=== PATIENT | female | born 1950 | race Caucasian/White ===

== ENCOUNTER → 2021-06-22 06:45 | Outpatient (CLI) | payer MEDICARE, SELFPAY ==
[2021-06-22 17:52] LABS: SARS-CoV-2 RNA PCR Negative
== END ==
PROVIDERS: PCP Family Medicine; Visit Provider Family Medicine
DX: R50.9 Fever, unspecified (principal); M79.10 Myalgia, unspecified site; Z20.822 Contact with and (suspected) exposure to COVID-19
CPT/HCPCS: C9803; U0003; U0005

== ENCOUNTER 2021-08-20 02:12 | Day surgery (SDC) | payer MEDICARE, SELFPAY ==
[2021-08-08 08:57] VITALS: BMI 28.7
[2021-08-20 08:22] VITALS: BP 138/66; PULSE 62; RESP 16; TEMP 36.3; O2SAT 100; BMI 27.8
[2021-08-20] MEDS: LACTATED RINGERS 1,000 ML 150 ML IV CONT (08:35)
--- NOTE | 2021-08-20 08:49 | WPDGICN ---
Assessment and Plan Assessment and plan (1) Encounter for screening colonoscopy: Code(s): Z12.11 - Encounter for screening for malignant neoplasm of colon Status: Acute Assessment and Plan: Patient presents for screening colonoscopy. She appears to be at average risk for colon polyps. GI Consult Note Consult date/time: 08/20/21 08:49 HPI: Graciela Cabrales is a 70 year old female Presents for screening colonoscopy. Patient reports that her current weight appetite bowel movements are normal. She denies an abdominal pain. She has had no bleeding. Family history is noncontributory. Review of Systems Review of Systems: All systems reviewed & are unremarkable except as noted in HPI and below PMFSH Past Medical History Medical History (Updated 08/20/21 @ 08:51 by Ted Ríos MD) Anemia Cataracts, bilateral Cystocele Osteopenia Thyroid disease Tubal ligation evaluation Family History Family History (Reviewed 12/13/20 @ 08:04 by Naomy Long [facility]) Other Cerebrovascular accident Family history of anemia Family history of cardiovascular disease Family history of elevated blood lipids Family history of hearing loss Family history of osteoporosis Family history of seizure disorder Hypertension Malignant neoplasm of prostate Social History Social History (Reviewed 12/13/20 @ 08:04 by Naomy Long [facility]) Smoking status: Never smoker Alcohol intake: current Living arrangements: with family Spiritual care concerns: No Meds Home Medications and Allergies Home Medications Medication Instructions Recorded Confirmed Type sodium chloride 5 % eye ointment 1 applic OPHTHALMIC (EYE) DAILY 12/13/20 08/08/21 History vitamin B complex 1 tablet PO BID 12/13/20 08/08/21 History ascorbic acid (vitamin C) 500 mg 50 mg PO DAILY tablet 04/11/21 08/08/21 History tablet evening primrose oil 500 mg capsule 500 mg PO TID 04/11/21 08/08/21 History sertraline 25 mg tablet 25 mg PO DAILY 04/11/21 08/08/21 History cholecalciferol (vitamin D3) 25 mcg PO DAILY 08/08/21 08/08/21 History bwsupajmcsw-czbitirxk-fou C-Mn 3 cap PO DAILY 08/08/21 08/08/21 History [Glucosamine Chondroitin MaxStr] magnesium 250 mg PO DAILY 08/08/21 08/08/21 History lmbntidli-jwdfwau-nhkwfwqxr 2 cap PO DAILY 08/08/21 08/08/21 History vitamin E acetate 134 mg PO BID 08/08/21 08/08/21 History Allergies Allergy/AdvReac Type Severity Reaction Status Date / Time No Known Allergies Allergy Unknown Verified 08/20/21 08:21 Vital Signs Vital Signs - 24 hr 08/20/21 08:22 Temperature 97.3 F L Pulse Rate 62 Respiratory Rate 16 Blood Pressure 138/66 Pulse Oximetry 100 Exam Narrative: physical exam reveals patient to be alert. Vital signs stable. HEENT exam is unremarkable. Patient is anicteric. Lungs are clear to auscultation and percussion. Heart is without murmur or extra sounds. Abdominal exam bowel sounds are present soft nontender with no hepatosplenomegaly. Digital external rectal exam is normal.
--- NOTE | 2021-08-20 08:51 | WPDANESEPPF ---
Anes - Initial Pre Proc Eval Procedure: Operation Date: 08/20/21 09:30 Proposed Procedures p Screening Colonoscopy - Ted Ríos MD Date/Time: 08/20/21 08:51 Surgeon: Ted Ríos MD Pre Op Diagnosis: neoplasm screening Patient Data Age: 70 Gender: F Height: 1.57 m Weight: 69 kg Last Vital Signs Temp 97.3 F L 08/20/21 08:22 Pulse 62 08/20/21 08:22 Resp 16 08/20/21 08:22 BP 138/66 08/20/21 08:22 Pulse Ox 100 08/20/21 08:22 Allergies Allergy/AdvReac Type Severity Reaction Status Date / Time No Known Allergies Allergy Unknown Verified 08/20/21 08:21 Home Medications Medication Instructions Recorded Confirmed Type sodium chloride 5 % eye ointment 1 applic OPHTHALMIC (EYE) DAILY 12/13/20 08/08/21 History vitamin B complex 1 tablet PO BID 12/13/20 08/08/21 History ascorbic acid (vitamin C) 500 mg 50 mg PO DAILY tablet 04/11/21 08/08/21 History tablet evening primrose oil 500 mg capsule 500 mg PO TID 04/11/21 08/08/21 History sertraline 25 mg tablet 25 mg PO DAILY 04/11/21 08/08/21 History cholecalciferol (vitamin D3) 25 mcg PO DAILY 08/08/21 08/08/21 History smptrbhrlbg-wgmqczlsr-ied C-Mn 3 cap PO DAILY 08/08/21 08/08/21 History [Glucosamine Chondroitin MaxStr] magnesium 250 mg PO DAILY 08/08/21 08/08/21 History jeswxcezl-uwuhagz-gmxpbefgz 2 cap PO DAILY 08/08/21 08/08/21 History vitamin E acetate 134 mg PO BID 08/08/21 08/08/21 History Patient hx anesthesia problems: none Family hx anesthesia problems: none PMFSH Past Medical History Medical History (Updated 08/20/21 @ 08:51 by Ted Ríos MD) Anemia Cataracts, bilateral Cystocele Osteopenia Thyroid disease Tubal ligation evaluation Family History Family History Other Cerebrovascular accident Family history of anemia Family history of cardiovascular disease Family history of elevated blood lipids Family history of hearing loss Family history of osteoporosis Family history of seizure disorder Hypertension Malignant neoplasm of prostate Social History Social History Smoking status: Never smoker Alcohol intake: current Living arrangements: with family Spiritual care concerns: No Anes - Eval Final PreProcedure Day of Procedure 08/20/21 08:51 Patient weight: overweight Heart: regular rate and rhythm Lungs: clear to auscultation Airway: Mallampati scale class II Neurological: alert and oriented Last oral intake: >/= 8 hours ASA classification: II Emergent: no Anesthetic plan: proceed Anesthesia type and monitoring: general GIVS and standard monitoring Informed Consent: The patient's anesthetic plan and its attendant risks and benefits were discussed with the patient/family/POA. Questions were solicited and answers provided to the satisfaction of the patient/family/POA.
[2021-08-20 09:16] VITALS: BP 112/48; PULSE 57; RESP 19; O2SAT 100
[2021-08-20 09:26] VITALS: BP 120/53; PULSE 52; RESP 15; O2SAT 100
[2021-08-20 09:36] VITALS: BP 128/58; PULSE 51; RESP 17; O2SAT 100
== END 2021-08-20 09:44 | disposition home or self-care (01) ==
PROVIDERS: PCP Physician Assistant; Visit Provider Internal Medicine Gastroenterology
PROC: 0DJD8ZZ Inspection of Lower Intestinal Tract, Via Natural or Artificial Opening Endoscopic (ICD-10-PCS; CPT 45378; principal; 2021-08-20 09:30)
DX: Z12.11 Encounter for screening for malignant neoplasm of colon (principal); K64.8 Other hemorrhoids; K57.30 Diverticulosis of large intestine without perforation or abscess without bleeding; M85.80 Other specified disorders of bone density and structure, unspecified site
CPT/HCPCS: G0121; J2704; J7120

== ENCOUNTER 2022-05-24 01:36 | Day surgery (SDC) | payer MEDICARE, SELFPAY ==
[2022-05-23 15:29] VITALS: BMI 28.8
[2022-05-24 08:40] VITALS: BP 137/73; PULSE 60; RESP 13; TEMP 36.6; O2SAT 98
--- NOTE | 2022-05-24 09:45 | SUR.PREOP ---
0900 Artem the rep with [facility] in [facility] talking with the patient.
--- NOTE | 2022-05-24 09:59 | WPDHPUPDATE1 ---
History and Physical Update Update Date/Time: 05/24/22 09:59 History and Physical has been reviewed, including an updated exam of the patient. There are NO changes in the patient's condition. Risks, benefits, and alternatives have been discussed and questions answered. Patient agrees to proceed with procedure.
--- NOTE | 2022-05-24 10:00 | WPDMODSED ---
Moderate Sedation Note-Pt Data Patient Data Diagnosis: Intermittent syncope of unknown known etiology Present Complaint: No complaints today Procedure to be performed/Plan: Implant loop recorder Allergies Allergy/AdvReac Type Severity Reaction Status Date / Time No Known Allergies Allergy Unknown Verified 05/24/22 08:36 Home Medications Medication Instructions Recorded Confirmed Type sodium chloride 5 % eye ointment 1 applic ophthalmic (eye) DAILY 12/13/20 05/24/22 History vitamin B complex 1 tablet PO BID 12/13/20 05/24/22 History ascorbic acid (vitamin C) 500 mg 500 mg PO DAILY 04/11/21 05/24/22 History tablet (Vitamin C) evening primrose oil 500 mg capsule 500 mg PO TID 04/11/21 05/24/22 History cholecalciferol (vitamin D3) 25 25 mcg PO DAILY 08/08/21 05/24/22 History mcg (1,000 unit) capsule fpegvytqytf-iqenblgjx-tbc C-Mn 500 1 cap PO TID 08/08/21 05/24/22 History mg-400 mg capsule (Glucosamine Chondroitin Maximum Strength) magnesium 250 mg tablet 250 mg PO DAILY 08/08/21 05/24/22 History vblgoivug-ihslerd-ahjyvxukr capsule 1 cap PO DAILY 08/08/21 05/24/22 History Synthroid 25 mcg tablet 25 mcg PO QAM 90 days #90 tabs 04/10/22 05/24/22 Rx (levothyroxine) vitamin E acetate 100 unit capsule 100 unit PO BID 05/23/22 05/24/22 History Sedation/Anesthesia: No previous sedation/anesthesia problems (including family history). [facility] Past Medical History Medical History (Updated 04/10/22 @ 09:01 by Jose Enrique Kaur CMA) Anemia Basal cell carcinoma of axilla Cataracts, bilateral Cystocele Osteopenia Thyroid disease Tubal ligation evaluation Family History Family History Other Cerebrovascular accident Family history of anemia Family history of cardiovascular disease Family history of elevated blood lipids Family history of hearing loss Family history of osteoporosis Family history of seizure disorder Hypertension Malignant neoplasm of prostate Social History Social History Smoking packs per day: 0 Smoking cigarettes per day: 0.0 Years smoked: 0 Smoking pack-years: 0.00 Smoking status: Never smoker Second hand tobacco smoke exposure: No Alcohol intake: current Alcohol use details: GLASS OF WINE FEW TIMES A YEAR. Substance use: never Substance use type: does not use Living arrangements: with family Additional living arrangements comments: LIVES W/ , INES [place]ST[place] Spiritual care concerns: No Mod Sed Physical Exam Physical Exam Pre Procedural Exam: Normal: Appearance, Neck, Throat, Airway, Lungs, Heart Size, Heart Rate, Heart Rhythm, Neuro Exam and Extremities Hours since solid foods: 12 Hours since liquid intake: 12 Mallampati Classification: class II Internal Medicine - PN: Obj Da Vital Signs Vital Signs: Vital Signs - 24 hr // 08:40 Temperature 36.6 C Pulse Rate 60 Respiratory Rate 13 Blood Pressure 137/73 Pulse Oximetry 98 Oxygen Delivery Room Air ASA Classification/Sedation ASA Classification/Sedation ASA Class: II Emergent: No Risks: Risks, benefits and alternatives explained and patient/family accepted plan for sedation. Patient re-evaluated immediately prior to sedation.
--- NOTE | 2022-05-24 10:00 | SUR.OPER ---
pt resting comfortably in bed, Dr. Ruiz spoke with pt for exam and to answer any additional questions. Pt skin prepped, pt draped. Prepare for procedure.
--- NOTE | 2022-05-24 10:20 | P.PCNCC_ITS ---
Cardiac Cath Procedure Note Date of procedure:: 05/24/22 Performing physician:: Moiz Ruiz MD Indication:: Intermittent syncope Brief clinical history:: This is a 71-year-old woman with a history of intermittent syncope for many years. The Ti episodes are occurring very infrequently. For evaluation of this an implantable loop recorder has been recommended. Procedure Procedure performed:: Implantation of Biotronik Biomonitor loop recorder Sedation/Medication given:: No sedation Access site:: Left anterior chest wall Estimated blood loss:: Minimal Procedure note:: Patient was brought to the cardiac catheterization lab holding area in the postabsorptive state. She was in the supine position and maame was made in the left anterior chest wall in the midclavicular line at the 4th intercostal space. This area was then prepped and draped in the sterile fashion. Anesthesia was given with 20 cc of lidocaine infiltrated in the area. Using the insertion kit supplied with the bio monitor the the puncture was made at the marked spot and then the device was deployed inferior to the maame easily and without difficulty. The telemetry demonstrated excellent sensing of the patient's electrocardiogram. The wound is going dressed with a bio glue and a Band-Aid. Findings:: As above the patient bio monitor device model number [id number], serial number [id number] Conclusion:: Successful uncomplicated implantation of Biotronik bio monitor loop recorder for ongoing evaluation of intermittent episodes of syncope in this 71-year-old lady. Moiz Ruiz MD [facility]
[2022-05-24 10:40] VITALS: BP 153/62; PULSE 58; RESP 12; O2SAT 100
== END 2022-05-24 10:45 | disposition home or self-care (01) ==
LOC: ANHCATHLAB 01:37 → ANHCARD 10:43 → ANHCATHLAB 06-11 14:21
PROVIDERS: PCP Physician Assistant; Visit Provider Specialist
PROC: (CPT 33285; principal; 2022-05-24 09:00)
DX: R55 Syncope and collapse (principal)
CPT/HCPCS: 33285; C1764

== ENCOUNTER 2023-06-13 13:05 | Observation (INO) | payer MEDICARE, SELFPAY ==
[2023-06-13] VITALS (14 sets, daily range): BP systolic 126–160; BP diastolic 50–77; PULSE 57–81; RESP 12–20; TEMP 36.2–37.1; O2SAT 96–100; BMI 31.4
--- NOTE | ~2023-06-13 | XR_ITS ---
XR chest 2V DATE: 06/14/2023 13:23 INDICATION: 24 hours post pacemaker insertion TECHNIQUE: PA and lateral views COMPARISON: 06/13/2023 portable upright AP chest FINDINGS: Left dual-lead pacemaker device with leads overlying right atrium and right ventricle. Overlies left chest. Normal heart size. Aortic arch calcification. No hilar or mediastinal enlargement. No pulmonary infiltrate or consolidation, pleural effusion or pulmonary vascular congestion or pneumo thorax. Mild thoracic dextroscoliosis. Osteopenia. IMPRESSION: Left dual-lead pacemaker device No active cardiopulmonary disease Aortic atherosclerosis Reviewed, dictated and finalized at location A.
--- NOTE | ~2023-06-13 | XR_ITS ---
EXAMINATION: XR chest 1V portable INDICATION: Pacemaker insertion TECHNIQUE: Portable AP chest at 1328 hours COMPARISON: 12/15/2007 FINDINGS: The lungs are free of acute opacities. No pleural effusion or pneumothorax. The cardiomedia stinal silhouette is normal. A dual-lead cardiac pacemaker of the left chest wall ends with leads in expected locations. An implanted quality assurance monitor projects over the left chest. IMPRESSION: 1. Dual-lead left chest wall pacemaker insertion. No acute cardiopulmonary abnormality. Reviewed, dictated and finalized at location B. IMPRESSION: 1. Dual-lead left chest wall pacemaker insertion. No acute cardiopulmonary abno rmality.
--- NOTE | 2023-06-13 09:19 | ECG_ITS ---
Measurements Intervals [place] Rate: 58 P: 32 [place]: 166 QRS: 46 QRSD: 98 T: 29 QT: 425 QTc: 417 Interpretive Statements SINUS BRADYCARDIA INCOMPLETE RIGHT BUNDLE BRANCH BLOCK BORDERLINE ECG NO PREVIOUS ECG AVAILABLE FOR COMPARISON Electronically Signed On 06-13-2023 11:10:58 CDT by Edwin Elizabeth D.O.
[2023-06-13 09:50] LABS: Basophils Absolute Auto 0.1 K/mm3 (0.0-0.1); Eosinophils Absolute Auto 0.1 K/mm3 (0-0.3); Eosinophils Percent Auto 2.2 % (0-4.4); Hematocrit 40.5 % (37.0-47.0); Hemoglobin 13.5 g/dL (12.0-15.0); Immature Granulocyte Absolute 0.02 K/mm3 (0.00-0.031); Immature Granulocyte Percent A 0.4 % (0-0.5); Lymphocytes Absolute Auto 1.34 K/mm3 (0.9-3.2); Lymphocytes Percent Auto 26.4 % (18.3-44.2); Mean Corpuscular HGB Conc 33.3 g/dl (32-36); Mean Corpuscular Hemoglobin 31.3 pg (26-34); Mean Platelet Volume 10.3 fl (7.4-10.4); Monocytes Absolute Auto 0.4 K/mm3 (0.1-0.6); Monocytes Percent Auto 8.7 % (2.6-8.5); Neutrophils Absolute Auto 3.1 K/mm3 (1.3-6.7); Neutrophils Percent Auto 61.3 % (45.5-73.1); Platelet Count Result 232 k/mm3 (150-375); Red Blood Count 4.31 M/mm3 (4.2-5.4); Red Cell Distribution Width 13.2 % (11.5-14.5); White Blood Count 5.1 K/mm3 (4.5-10.0)
[2023-06-13 10:03] LABS: INR 0.9; Prothrombin Time 12.7 Seconds (11.1-14.7)
[2023-06-13 10:40] LABS: Anion Gap 5 mmol/L (8-16); Blood Urea Nitrogen 21 mg/dL (7-17); Calcium 8.8 mg/dL (8.4-10.2); Carbon Dioxide 30 mmol/L (22-30); Chloride 105 mmol/L (98-107); Estimated CRCL calculation 67 ml/min; Estimated Glomerular Filt Rate > 60; Glucose 96 mg/dL (65-110); Potassium 3.7 mmol/L (3.4-5.0); Sodium 140 mmol/L (137-145)
--- NOTE | 2023-06-13 11:49 | WPDMODSED ---
Moderate Sedation Note-Pt Data Patient Data Diagnosis: sick sinus syndrome with syncope Present Complaint: infrequent syncopal episodes Procedure to be performed/Plan: implantation of dual-chamber pacemaker Allergies Allergy/AdvReac Type Severity Reaction Status Date / Time No Known Allergies Allergy Unknown Verified 06/13/23 09:21 Home Medications Medication Instructions Recorded Confirmed Type sodium chloride 5 % eye ointment 1 applic ophthalmic (eye) DAILY 12/13/20 06/12/23 History vitamin B complex 1 tablet PO DAILY 12/13/20 06/12/23 History ascorbic acid (vitamin C) 500 mg 500 mg PO DAILY 04/11/21 06/12/23 History tablet (Vitamin C) evening primrose oil 500 mg capsule 500 mg PO TID 04/11/21 06/12/23 History cholecalciferol (vitamin D3) 25 25 mcg PO DAILY 08/08/21 06/12/23 History mcg (1,000 unit) capsule wattiqawjxe-jxdqtatae-oue C-Mn 500 1 cap PO TID 08/08/21 06/12/23 History mg-400 mg capsule (Glucosamine Chondroitin Maximum Strength) magnesium 250 mg tablet 250 mg PO DAILY 08/08/21 06/12/23 History lgybaboan-ydexytc-ncswkjkkc capsule 1 cap PO DAILY 08/08/21 06/12/23 History vitamin E acetate 100 unit capsule 100 unit PO BID 05/23/22 06/12/23 History Synthroid 25 mcg tablet 25 mcg PO QAM 90 days #90 tabs 10/16/22 06/13/23 Rx (levothyroxine) Sedation/Anesthesia: No previous sedation/anesthesia problems (including family history). [facility] Past Medical History Medical History (Updated 06/01/23 @ 10:34 by TAJ Nguyễn) Anemia Depression History of Mohs micrographic surgery for skin cancer History of syncope Hypertension Hypothyroidism, acquired Obstructive sleep apnea Osteopenia Surgical History Surgical History (Updated 06/01/23 @ 11:26 by TAJ Nguyễn) History of bladder suspension procedure cystocele and rectocele repair 2004 History of cataract surgery 08/2022 History of colonoscopy 2020 History of D&C 1979 History of loop recorder 05/24/2022 History of tubal ligation 1979 Family History Family History Grandparent Heart disease Pancreatic cancer Primary cancer of kidney Malignant neoplasm of prostate Father Hypertension Parkinson disease Mother Diabetes mellitus Heart disease Social History Social History (Updated 05/28/23 @ 10:00 by Eliz Simental MA) Smoking status: Never smoker Second hand tobacco smoke exposure: No Alcohol intake: current Alcohol use details: 2 glasses wine per year Substance use: never Substance use type: does not use Lack of Transportation: No Lack of Food: Never True Current Housing: I Have Housing Concerned About Future Housing: No Difficulty Paying Gas/Electric Bills: No Difficulty Paying for Meds: No Currently Unemployed: No Education: Trade/Vocational Certificate Difficulty w/ Childcare or Family Care: No Living arrangements: with family Additional living arrangements comments: LIVES W/ , [place] Occupation/Education: occupation Gender identity (if verbalized by the patient): Female Sexual Orientation (if Verbalized by the Patient): Straight or Heterosexual Spiritual care concerns: No Mod Sed Physical Exam Physical Exam Pre Procedural Exam: Normal: Appearance, Nose, Neck, Throat, Airway, Lungs, Heart Size, Heart Rate, Heart Rhythm, Neuro Exam and Extremities Hours since solid foods: 12 Hours since liquid intake: 12 Mallampati Classification: class II Internal Medicine - PN: Obj Da Vital Signs Vital Signs: Vital Signs - 24 hr 06/13/23 09:45 Temperature 36.6 C Pulse Rate 57 L Respiratory Rate 12 Blood Pressure 152/63 H Pulse Oximetry 99 Oxygen Delivery Room Air Labs 06/13/23 09:27 06/13/23 10:08 Labs: Laboratory Results - last 24 hr 06/13/23 06/13/23 09:27 10:08 WBC 5.1 RBC 4.31 Hgb 13.5 H
--- NOTE | 2023-06-13 13:05 | ECG_ITS ---
Measurements Intervals [place] Rate: 56 P: 54 [place]: 176 QRS: 72 QRSD: 104 T: 45 QT: 424 QTc: 412 Interpretive Statements SINUS BRADYCARDIA INCOMPLETE RIGHT BUNDLE BRANCH BLOCK BORDERLINE ECG COMPARED TO ECG 06/13/2023 09:54:07 NO SIGNIFICANT CHANGES Electronically Signed On 06-13-2023 13:44:09 CDT by Edwin Elizabeth D.O.
--- NOTE | 2023-06-13 13:07 | WPDCARDPROC ---
Cardiac Cath Procedure Note Date of procedure:: 06/13/23 Performing physician:: Moiz Ruiz MD Indication:: sick sinus syndrome with syncope Brief clinical history:: this is a 72-year-old woman who has a history of a infrequent syncopal episodes. For evaluation of this approximately 1 year ago a loop recorder was implanted. Earlier this week the device demonstrated a long asystolic pause of 12 seconds Which of course was symptomatic prompting the recommendation for pacemaker implantation. Procedure Procedure performed:: Implantation of permanent dual-chamber pacemaker Sedation/Medication given:: fentanyl 50 mg Versed 2 mg Access site:: left anterior chest wall /subclavian vein Estimated blood loss:: 25 cc Procedure note:: patient was brought to the cardiac catheterization lab in the postabsorptive state where the left anterior chest wall was prepped and draped in the usual fashion. Anesthesia was provided a below the clavicle with 1% lidocaine infiltrated locally. an incision was then made about 1 in below the clavicle from the midclavicular line to the deltopectoral groove. Sharp and blunt dissection was then used to separate the subcutaneous tissue electrocautery was used to provide cutaneous hemostasis. Using blunt dissection a pacemaker pocket was created inferior to the incision along the prepectoral fascial plane. Following this the pocket was packed with an antibiotic-soaked 4 x 4. Attention was then turned venous access. Using the 2 6 [place] pacemaker safe sheath devices and the supplied insertion needles the subclavian vein was punctured twice and the J wires were placed under fluoroscopic visualization into the level of the right atrium. Using the safe sheaths the pacemaker leads detailed below were placed into the venous circulation and advanced to the right atrial position the piece sheaths were then peeled away. Following this attention was turned to placing the ventricular lead. The straight stylet was withdrawn and a 3 cc syringe was used to formulate a J-shaped stylet. This was used to steer the lead through the right ventricle out to the pulmonary artery position. Several attempts had to be made to withdraw the lead carefully and find a right ventricular apical position. A ultimately this was done nicely the fixation screw was deployed and appropriate pacing and sensing performance was demonstrated using a 10 pole stimulus there was no sign of intracardiac stimulation. Attention was then turned to positioning the atrial lead. The stylet was withdrawn and a preformed atrial J stylet was placed into the lead and the lead was then maneuvered into the right atrial appendage position. The fixation screw was deployed upon withdrawal of the stylet the lead tip was fixed into position once again appropriate pacing and sensing was demonstrated using the analyzer and a 10 volts stimulation showed no evidence of extracardiac stimulation. The leads were then secured to the base of the pocket using the suture sleeves and 2-0 silk ties. The retained sponge was then removed from the pocket. The pacemaker device detailed below was connected to the leads using the torque wrench and the entire assembly was placed into the newly created pocket. This was then closed in layers using 3-0 Vicryl in interrupted fashion for the subcutaneous tissue and 4-0 Vicryl in a running subcuticular fashion for the skin. The wound was dressed with an Aquacel dressing patient's left arm was placed in an immobilizer she has taken back to the holding area for post implant recovery. The procedure was well tolerated and uncomplicated. Findings:: The patient received a Biotronik permanent dual-chamber pacemaker model Edora 8 DR=T [id number]. Serial number [id number]. Device is programmed in the DDD/CLS mode lower rate limit 50 upper rate limit 130. The atrial lead is a Biotronik bipolar screw-in lead model Solia S [id number]. serial number [id number]
--- NOTE | 2023-06-13 14:15 | SUR.PHASEII ---
END PHASE II RECOVERY AT THIS TIME. NOW, OUTPATIENT PPM INSERTION VISIT CHANGED TO OBSERVATIONAL STAY AFTER OUTPATIENT PPM INSERTION, IMU STATUS ORDERED BY DR. AVERY. REMAINS IN [facility] AT THIS TIME. WILL MOVE TO IMU BED FOR DURATION OF STAY WHEN BED AVAILABLE. SEE PCS FOR FURTHER DOCUMENTATION.
--- NOTE | 2023-06-13 14:16 | PC.NURSE ---
PT. STATUS NOW OBS, IMU OVERFLOW IN ALTERATION WORKER 3. S/P NEW BIOTRONIK DCPPM INSERTION L. UPPER CHEST TODAY. SEE PHASE II RECOVERY FOR PREVIOUS DOCUMENTATION. RESTING IN BED, IMMOBILIZER ON L. ARM. DRESSING OVER PPM SITE C/D/I. NO SWELLING, REDNESS, BLEEDING, HEMATOMA NOTED TO SITE. REPORTS SORE TO TOUCH, BUT NOT IN PAIN. ATE 100% OF LUNCH. VOIDS WELL PER BEDPAN. IVF'S RUNNING ORDERED. AT BEDSIDE. REVIEWED BEDREST ORDERS AND MOVEMENT RESTRICTIONS FOR L. ARM POST OP. V/U OF ALL. LAST IV ABX WAS GIVEN AT 1200 IN CCL. WILL CONTINUE TO MONITOR.
[2023-06-13] MEDS: ACETAMINOPHEN 325 MG TABLET 650 MG PO ×2 (16:42→21:00)
--- NOTE | 2023-06-13 17:10 | PC.NURSE ---
PT TO MOVE TO IMU 202 FOR DURATION OF OBSERVATION STAY S/P NEW DC PPM IMPLANT. PT. AND AWARE. REPORT GIVEN TO PETRA Serna RN IN IMU.
--- NOTE | 2023-06-13 17:30 | PC.NURSE ---
TRANSFERRED VIA BED FROM [facility] TO IMU 202 IMU OBS STATUS PT ON TRANSPORT MONITOR. ALL BELONGINGS SENT W/ PT. BIOTRONIK BEDSIDE MONITOR PLACED BEDSIDE IN AND PLUGGED IN. PT. HAS OWN CPAP DEVICE IN POSSESSION. ICE PACK TO L. UPPER CHEST. VOICES NO C/O. UPDATES TO PETRA Serna RN.
[2023-06-13] MEDS: SODIUM CHLORIDE 0.9% IV 1,000 ML 50 ML IV CONT (17:40)
--- NOTE | 2023-06-13 17:40 | ADMGEN ---
This patient, Graciela Cabrales, was admitted to IMU Room 202-. Patient/family oriented to hospital policies and general routines including ID bracelet, bed and alarms, visiting hours, pain management, procedures, bathroom and other care routines, personal items, smoking policy, room service/diet, and visiting hours. Information on how to activate the Rapid Response Team has been discussed. Patient/Family are encouraged to report perceived risks to care and to ask questions if they do not understand what they are told or what they should do.
[2023-06-13] MEDS: VITAMIN E 100 UNIT CAPSULE PO (18:29)
[2023-06-13] MEDS: ceFAZolin 1 GM/NS 50 ML 1 GM/50 ML BAG IVPB (20:12)
[2023-06-13] MEDS: WATER FOR IRRIGATION, STERILE 1,000 ML BOTTLE 1000 ML (20:59)
[2023-06-14] VITALS (8 sets, daily range): BP systolic 128–136; BP diastolic 56–61; PULSE 58–84; RESP 12–20; TEMP 36.4–36.8; O2SAT 98–99
[2023-06-14] MEDS: ceFAZolin 1 GM/NS 50 ML 1 GM/50 ML BAG IVPB (04:02)
[2023-06-14] MEDS: ACETAMINOPHEN 325 MG TABLET 650 MG PO (04:08)
[2023-06-14] MEDS: LEVOTHYROXINE SODIUM 25 MCG TABLET PO (06:11)
--- NOTE | 2023-06-14 08:04 | PM.DS ---
DS: Admitting Diagnosis Discharge Date 06/14/2023 Admitting Diagnosis Sick sinus syndrome with syncope DS: Discharge Diagnosis Discharge Diagnosis (1) Pacemaker: Code(s): Z95.0 - Presence of cardiac pacemaker Status: Acute DS: Summary Hospital Course Reason for hospitalization: Implantation of pacemaker device Hospital Course: This is a 72-year-old woman with a history of infrequent episodes of syncope. For evaluation of this a loop recorder was placed about 1 year ago. The device demonstrated a long asystolic pause earlier this week. The patient was seen in the office and recommendation was for implantation of pacemaker device. She was admitted on the morning of this hospitalization for this procedure as an outpatient. She underwent implantation of a permanent Biotronik dual-chamber pacing system uneventfully. The details of the procedure and device are in the separately dictated note from the cardiac bottle label inspector procedure note. Following the procedure she had no postop complications she is feeling well this morning and completing her bed rest. Following completion of bed rest she will have chest x-ray done and be discharged to home this afternoon. She will be seen in the office next week for dressing removal and wound check. Status at Discharge Functional status at discharge: independent ambulation Overall status at discharge: patient is back to baseline Time Spent with Patient Time attestation: Total time spent providing and/or coordinating discharge services: Time spent: Less than 30 minutes Exam Const: General: comfortable and no acute distress HENMT: Mouth: Yes moist mucous membranes Eyes: Sclera: sclerae normal Neck: Neck: supple and no JVD Resp: Effort & Inspection: normal respiratory effort Auscultation: clear to auscultation bilaterally Cardio: Rate: regular rate Rhythm: regular rhythm GI: GI Palp: Yes Soft to palpation Auscultation: normal bowel sounds Skin: General skin exam: normal color Neuro: Other: Alert and oriented x3 Extrem: General: normal to inspection DS: Data Data Completed and Pending Labs on day of discharge: Labs from last 24 hours 06/13/23 06/13/23 10:08 09:27 WBC 5.1 RBC 4.31 Hgb 13.5 Hct 40.5 MCV 94.0 MCH 31.3 MCHC 33.3 RDW 13.2 Plt Count 232 MPV 10.3 Immature Gran % (Auto) 0.4 Neut % (Auto) 61.3 Lymph % (Auto) 26.4 [place] % (Auto) 8.7 H Eos % (Auto) 2.2 Baso % (Auto) 1.0 Lymph # (Auto) 1.34 [place] # (Auto) 0.4 Eos # (Auto) 0.1 Baso # (Auto) 0.1 Abs Immat Gran (auto) 0.02 Absolute Neuts (auto) 3.1 Absolute Nucleated RBC 0.0 Nucleated RBC % 0.0 PT 12.7 INR 0.9 Sodium 140 Potassium 3.7 Chloride 105 Carbon Dioxide 30 Anion Gap 5 L BUN 21 H Creatinine 0.60 L Estim Creat Clear Calc 67 Estimated GFR > 60 Glucose 96 Calcium 8.8 Discharge Plan Discharge Attending physician on discharge: Moiz Ruiz Discharging Clinician: Moiz Ruiz Patient Disposition: Home, Self-Care Activity: other - see discharge instructions Diet: regular Discharge Instructions: [facility] [address] [place] [address] DISCHARGE INSTRUCTIONS - POST PACEMAKER Activity 1. No driving until you are seen in the office for your incision check. 2. No lifting, pushing or pulling more than 5 pounds with affected arm for 1 MONTH 3. No lifting affected arm
[2023-06-14] MEDS: CHOLECALCIFEROL 1,000 UNITS TABLET 1000 UNITS PO (08:45)
[2023-06-14] MEDS: ASCORBIC ACID 500 MG TABLET PO (08:45)
[2023-06-14] MEDS: VITAMIN E 100 UNIT CAPSULE PO (08:45)
[2023-06-14] MEDS: VITAMIN B COMPLEX CAPSULE 1 CAP PO (08:45)
[2023-06-14] MEDS: SODIUM CHLORIDE 5% OPHTH OINT 3.5 GM TUBE 1 APPLIC EACH EYE (08:45)
--- NOTE | 2023-06-14 10:24 | PHAR ---
HOME MED: EVENING PRIMROSE OIL 500 MG; DIRECTIONS: TAKE 1 TO 6 SOFTGELS ONE TO TWO TIMES DAILY, PREFERABLY WITH MEALS. VERIFIED BY PHARMACY.
== END 2023-06-14 15:37 | disposition home or self-care (01) ==
LOC: ANHCATHLAB 15:29 → ANHIMU 17:04
PROVIDERS: Admitting Provider Specialist; PCP Family Medicine; Visit Provider Specialist
PROC: 0JH606Z Insertion of Pacemaker, Dual Chamber into Chest Subcutaneous Tissue and Fascia, Open Approach (ICD-10-PCS; CPT 33208; principal; 2023-06-13 10:30)
DX: I49.5 Sick sinus syndrome (principal); R55 Syncope and collapse; I45.10 Unspecified right bundle-branch block; I10 Essential (primary) hypertension; G47.33 Obstructive sleep apnea (adult) (pediatric); E03.9 Hypothyroidism, unspecified; D64.9 Anemia, unspecified; F32.A Depression, unspecified; M85.80 Other specified disorders of bone density and structure, unspecified site; Z79.899 Other long term (current) drug therapy; F10.90 Alcohol use, unspecified, uncomplicated; Z82.49 Family history of ischemic heart disease and other diseases of the circulatory system
CPT/HCPCS: 33208; 36415; 71045; 71046; 80048; 85025; 85610; 93005; A9270; C1779; C1785; G0378; J0690; J2250; J3010; J7030; J7040

== ENCOUNTER 2023-06-23 08:56 | Outpatient (CLI) | payer MEDICARE, SELFPAY ==
--- NOTE | ~2023-06-23 | US_ITS ---
US arterial ankle brachial ind INDICATION: Peripheral vascular disease TECHNIQUE: Segmental pressures and plethysmographic and Doppler waveforms of the brachial and lower e xtremity arteries were obtained. COMPARISON: None. FINDINGS: Right and left brachial artery pressures of 142 mm Hg and 144 mm Hg, respectively, are concordant (no rmal difference <= 30 mmHg). The right ankle-brachial index (MC) is 1.17 (normal >= 0.9-1.0). The right great toe-brachial index (TBI) is 0.67 (normal >= 0.60). The left MC is 1.17. The left TBI is 0.56. IMPRESSION: 1. Mildly diminished left toe brachial index, consistent with peripheral arterial disease. 2: Normal right ankle and toe brachial indices. Reviewed, dictated and finalized at location A. IMPRESSION: 1. Mildly diminished left toe brachial index, consistent with peripheral arteri al disease. 2: Normal right ankle and toe brachial indices.
== END 2023-06-23 08:57 | disposition home or self-care (01) ==
PROVIDERS: PCP Family Medicine; Visit Provider Physician Assistant
DX: I73.9 Peripheral vascular disease, unspecified (principal)
CPT/HCPCS: 93922

== ENCOUNTER 2024-02-21 09:39 | Outpatient (CLI) | payer MEDICARE, SELFPAY ==
--- NOTE | ~2024-02-21 | XR_ITS ---
EXAMINATION: XR chest 2V 02/21/2024 09:55 INDICATION: Shortness of breath. Recent Covid infection. PROCEDURE: 2 view chest COMPARISON: 06/14/2023 FINDINGS: The lungs are clear. The cardiomediastinal silhouette is within normal limits. There are no pleural effusions. There is no pneumothorax suspected. Pacemaker leads are stable. There is dext roscoliosis of the thoracic spine. IMPRESSION: 1: NO ACUTE CARDIOPULMONARY DISEASE. Reviewed, dictated and finalized at location A.
== END 2024-02-21 09:40 | disposition home or self-care (01) ==
LOC: ANHIMG 09:43
PROVIDERS: PCP Family Medicine; Visit Provider Physician Assistant
DX: R06.02 Shortness of breath (principal); Z20.822 Contact with and (suspected) exposure to COVID-19
CPT/HCPCS: 71046

== ENCOUNTER 2024-08-03 18:18 | Inpatient (IN) | payer MEDICARE, SELFPAY ==
--- NOTE | ~2024-08-03 | CT_ITS ---
EXAMINATION: CT abdomen pelvis w con DATE: 08/03/2024 20:13 INDICATION: Right lower quadrant abdominal pain. TECHNIQUE: Computed tomography (CT) of the abdomen and pelvis was performed with 100 mL Omnipaque 350 intravenous contrast. Automated exposure control and iterative reconstruction technique were employe d. The dose-length product was 400.72 mGy-cm. COMPARISON: None. FINDINGS: The visualized portions of the lung bases demonstrate mild atelectasis. No pleural effusion . The heart size is normal. No pericardial effusion. There are pacer wires in right atrium and right ventricle. The liver, gallbladder, spleen, pancreas, and adrenal glands are normal. There are cysts i n the kidneys measuring up to 4.1 cm on the left. The bladder is markedly distended. There is diverti culosis of the colon without evidence of diverticulitis. There is a right inguinal hernia containing terminal ileum. Small bowel is dilated proximal to the hernia. There are no pathologically enlarged l ymph nodes. There is no free intraperitoneal fluid. There is mild lumbar spondylosis. IMPRESSION: 1. Right inguinal hernia containing terminal ileum with small bowel obstruction. Reviewed, dictated and finalized at location A. IMPRESSION: 1. Right inguinal hernia containing terminal ileum with small bowel obstruction .
--- NOTE | ~2024-08-03 | XR_ITS ---
Supine portable view of the abdomen Clinical history: Small bowel obstruction Findings: Bowel gas pattern is nonspecific. No evidence for obstruction or free air. No abnormal mass lesion or calcification is seen. Osseous structures are intact. Impression: Nonspecific bowel gas pattern. Reviewed, dictated and finalized at location . Impression: Nonspecific bowel gas pattern.
[2024-08-03 18:14] VITALS: BP 143/61; PULSE 78; RESP 18; TEMP 36.8; O2SAT 100
--- NOTE | 2024-08-03 18:51 | ED.ABDPAIN ---
HPI - Abdominal Pain General Chief Complaint: Abdominal Pain Stated Complaint: abd pain Time Seen by Provider: 08/03/24 18:24 History of Present Illness HPI narrative: 73-year-old female presents emergency department for evaluation for right lower quadrant pain that started approximately noon today. Patient states he does have history of diverticula but denies any prior history of diverticulitis. Patient does have associated nausea with this pain. Patient does have history of bladder sling surgery. Related Data Home Medications Medication Instructions Recorded Confirmed sodium chloride 5 % eye ointment 1 applic ophthalmic (eye) DAILY 12/13/20 08/03/24 vitamin B complex 1 tablet PO DAILY 12/13/20 08/03/24 ascorbic acid (vitamin C) 500 mg 500 mg PO DAILY 04/11/21 08/03/24 tablet (Vitamin C) cholecalciferol (vitamin D3) 25 25 mcg PO DAILY 08/08/21 08/03/24 mcg (1,000 unit) capsule myhtuwtqqgt-zucyggjoc-jwp C-Mn 500 1 cap PO TID 08/08/21 08/03/24 mg-400 mg capsule (Glucosamine Chondroitin Maximum Strength) magnesium 250 mg tablet 500 mg PO HS 08/08/21 08/03/24 ascorbate calcium (vitamin C) 500 500 mg PO DAILY 08/03/24 08/03/24 mg capsule evening primrose oil 500 mg capsule 500 mg PO TID 08/03/24 08/03/24 peg 400-propylene glycol (PF) 0.4 1 drp EACH EYE DAILY PRN Dry Eyes 08/03/24 08/03/24 %-0.3 % eye drops in a dropperette (Systane (PF)) sodium chloride 5 % eye ointment 1 applic EACH EYE HS 08/03/24 08/03/24 vitamin E 200 unit capsule 200 unit PO DAILY 08/03/24 08/03/24 Allergies Allergy/AdvReac Type Severity Reaction Status Date / Time No Known Allergies Allergy Unknown Verified 08/03/24 20:49 Review of Systems Review of Systems: All systems reviewed & are unremarkable except as noted in HPI and below PMFSH Past Medical History Medical History Anemia Depression History of Mohs micrographic surgery for skin cancer History of syncope Hypertension Hypothyroidism, acquired Obstructive sleep apnea Osteopenia Pacemaker Sick sinus syndrome Surgical History Surgical History History of bladder suspension procedure cystocele and rectocele repair 2004 History of cataract surgery 08/2022 History of colonoscopy 2020 History of D&C 1979 History of loop recorder 05/24/2022 History of tubal ligation 1979 Family History Family History Grandparent Dementia Father Hypertension Mother Diabetes mellitus Social History Social History (Updated 02/09/24 @ 10:24 by Eliz Simental MA) Smoking status: Never smoker Second hand tobacco smoke exposure: No Alcohol intake: current Alcohol use details: 2 glasses wine per year Substance use: never Substance use type: does not use Do You Feel Safe in your Home?: Yes Lack of Transportation: No Lack of Food: Never True Current Housing: I Have Housing Concerned About Future Housing: No Difficulty Paying Gas/Electric Bills: No Difficulty Paying for Meds: No Currently Unemployed: No Education: Trade/Vocational Certificate Difficulty w/ Childcare or Family Care: No Living arrangements: with family Additional living arrangements comments: LIVES W/ , INES [place]RISTIE Occupation/Education: occupation Gender identity (if verbalized by the patient): Female Sexual Orientation (if Verbalized by the Patient): Straight or Heterosexual Spiritual care concerns: No Exam Narrative: APPEARANCE: Uncomfortable HEAD: normocephalic, atraumatic. EYES: PERRLA/EOMI, conjunctivae clear. NOSE: Normal no drainage EARS:TMS clear with good light reflex. THROAT: Pharynx clear, no exudate. NECK: Supple. No adenopathy, no masses. RESPIRATORY: Airway patent, respirations nonlabored. Clear to auscultation bilaterally, no rales, rhon
[2024-08-03 18:56] LABS: Basophils Percent Auto 0.4 % (0.2-1.2); Hematocrit 42.9 % (37.0-47.0); Hemoglobin 14.8 g/dL (12.0-15.0); Immature Granulocyte Absolute 0.03 K/mm3 (0.00-0.031); Immature Granulocyte Percent A 0.3 % (0-0.5); Lymphocytes Percent Auto 10.5 % (18.3-44.2); Mean Corpuscular HGB Conc 34.5 g/dl (32-36); Mean Corpuscular Hemoglobin 31.9 pg (26-34); Mean Corpuscular Volume 92.5 fl (80-100); Mean Platelet Volume 10.5 fl (7.4-10.4); Monocytes Absolute Auto 0.6 K/mm3 (0.1-0.6); Monocytes Percent Auto 5.8 % (2.6-8.5); Neutrophils Absolute Auto 7.9 K/mm3 (1.3-6.7); Platelet Count Result 283 k/mm3 (150-375); Red Blood Count 4.64 M/mm3 (4.2-5.4); Red Cell Distribution Width 13.2 % (11.5-14.5); White Blood Count 9.6 K/mm3 (4.5-10.0)
[2024-08-03] MEDS: SODIUM CHLORIDE 0.9% IV 1,000 ML 999 ML IV CONT (18:59)
[2024-08-03] MEDS: HYDROmorphone HCL INJ (*CRX) 1 MG/ML SYR 0.5 MG IV PUSH (19:00)
[2024-08-03] MEDS: ONDANSETRON INJ 4 MG/2 ML VIAL IV PUSH (19:00)
[2024-08-03 19:05] LABS: Alanine Aminotransferase 31 U/L (6-35); Albumin Level 4.8 g/dL (3.5-5.1); Alkaline Phosphatase 87 U/L (38-126); Anion Gap 16 mmol/L (4-12); Aspartate Amino Transferase 32 U/L (14-36); Bilirubin,Total 0.7 mg/dL (0.2-1.3); Blood Urea Nitrogen 19 mg/dL (7-17); Calcium 9.8 mg/dL (8.4-10.2); Carbon Dioxide 22 mmol/L (22-30); Chloride 100 mmol/L (98-107); Estimated Glomerular Filt Rate > 60; Glucose 133 mg/dL (65-110); Lipase 66 U/L (23-300); Potassium 3.7 mmol/L (3.4-5.0); Sodium 138 mmol/L (137-145)
[2024-08-03 19:06] LABS: INR 0.9; Prothrombin Time 12.8 Seconds (11.1-14.7)
[2024-08-03 19:07] LABS: Partial Thromboplastin Time 25.5 Seconds (22.3-36.8)
[2024-08-03 19:17] VITALS: BP 133/60; PULSE 67; RESP 18; O2SAT 100
[2024-08-03] MEDS: METOCLOPRAMIDE HCL INJ 10 MG/2 ML VIAL IV PUSH (19:58)
[2024-08-03 20:57] LABS: Add Urine Microscopic? YES; Appearance Urine Turbid (Clear); Bacteria Urine None Seen /hpf; Bilirubin Urine Negative (Negative); Blood Urine Negative (Negative); Color Urine Yellow (Yellow); Glucose Urine UA Negative (Negative); Ketones Urine 2+ mg/dL (Negative); Leukocyte Esterase Ur Trace LEU/UL (Negative); Nitrate Urine Negative (Negative); Non Pathogenic Casts 0-2; Protein Urine Negative (Negative); RBC Urine 0-2 /hpf (0-2); Specific Grav Ur 1.021 (1.001-1.035); Squamous Epithelial Cell Urine None Seen /hpf (Few); Urobilinogen Urine 0.2 mg/dL (<2.0); WBC Urine 0-5 /hpf (0-3); pH Urine 8.5 (5.0-9.0)
[2024-08-03 21:04] VITALS: BP 133/64; PULSE 78; RESP 18; O2SAT 100
[2024-08-03 21:35] VITALS: BP 135/60; PULSE 78; RESP 17; TEMP 36.6; O2SAT 100; BMI 23.6
[2024-08-03] MEDS: SODIUM CHLORIDE 0.9% IV 1,000 ML 125 ML IV CONT (21:39)
--- NOTE | 2024-08-03 23:27 | PM.IMHP ---
H&P: HPI History of Present Illness Date/Time: 08/03/24 23:27 Chief Complaint: Sudden right lower abdominal pain Narrative: 73-year-old female with a past medical history vitamin-D deficiency, osteopenia, hypothyroidism, essential hypertension, sick sinus syndrome status post pacemaker, bladder sling procedure, rectocele repair, tubal ligation who presented to the ER via EMS from home with sudden acute onset of right lower quadrant abdominal pain. The patient reports no eliciting factors. She reported around noon she developed 7/10 in intensity sharp stabbing pain in her right lower quadrant. It was accompanied by chills and shivering. She was afebrile on presentation to the ER. She did have 1 episode of vomiting just prior to EMS arrival at her home. She reports her last bowel movement was that same morning and was soft normally formed and brown in appearance. She had a normal colonoscopy in 2020 was stool she does not need any further colonoscopies due to her age. She thought she may have acute appendicitis so came into the ER for evaluation. In the ER CT scan was performed which demonstrated small-bowel obstruction due to incarcerated hernia containing terminal ileum. ER provider was able to reduce her hernia with almost immediate relief and abdominal pain.. Patient subsequently admitted to the medical floor with General surgery consult. Review of Systems Review of Systems: 12 systems were reviewed with pertinent positives and negatives per HPI. Except as documented in the HPI, all other systems were reviewed and are negative. [facility] Past Medical History Medical History (Updated 08/03/24 @ 23:40 by Olivia Cramer DO) Anemia Depression History of syncope Hypertension Hypothyroidism, acquired Obstructive sleep apnea Osteopenia Sick sinus syndrome (~2022) Vitamin D deficiency Surgical History Surgical History (Updated 08/04/24 @ 06:19 by Olivia Cramer DO) H/O rectocele repair (~2004) History of bladder suspension procedure cystocele and rectocele repair 2004 History of cataract surgery 08/2022 History of colonoscopy 2020 History of D&C 1979 History of loop recorder 05/24/2022 History of Mohs micrographic surgery for skin cancer Right axilla History of tubal ligation 1979 Status post cataract extraction of both eyes with insertion of intraocular lens Status post placement of cardiac pacemaker (~2022) Biotronik dual chamber pacemaker Due to sick sinus. Dr. Kim Family History Family History Grandparent Dementia Father Hypertension Mother Diabetes mellitus Social History Social History (Updated 08/04/24 @ 05:52 by Olivia Cramer DO) Social History: Patient reports she has been to her for 55 years. Her has been in acute rehab since mid to late July 2024 following a fall resulting in a intercranial bleed and clavicular fracture. She has 2 sons. 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 She is a lifelong nonsmoker and rarely drinks alcohol and has not even drink alcohol in many years. Code status: Full code Surrogate decision maker: Saran Cabrales () with secondary decision maker Jaya (son) Smoking status: Never smoker Second hand tobacco smoke exposure: No Alcohol intake: current Alcohol use details: 2 glasses wine per year Substance use: never Substance use type: does not use Do You Feel Safe in your Home?: Yes Lack of Transportation: No Lack of Food: Never True Current Housing: I Have Housing Concerned About Future Housing: No Difficulty Paying Gas/Electric Bills: No Difficulty Paying for Meds: No Currently Unemployed: No Education: Trade/Vocational Certificate Difficulty w/ Childcare or Family Care: No Living arrangements: with family Additional living arrangements comment
[2024-08-04] VITALS (15 sets, daily range): BP systolic 114–148; BP diastolic 45–66; PULSE 59–91; RESP 10–25; TEMP 36.6–37.2; O2SAT 81–100
--- NOTE | 2024-08-04 00:57 | ADMGEN ---
This patient, Graciela Cabrales, was admitted to Medical Room 349-01. Patient/family oriented to hospital policies and general routines including ID bracelet, bed and alarms, visiting hours, pain management, procedures, bathroom and other care routines, personal items, smoking policy, room service/diet, and visiting hours. Information on how to activate the Rapid Response Team has been discussed. Patient/Family are encouraged to report perceived risks to care and to ask questions if they do not understand what they are told or what they should do. arrived 212808/03/2024
[2024-08-04] MEDS: SODIUM CHLORIDE 0.9% IV 1,000 ML 125 ML IV CONT (06:06)
--- NOTE | 2024-08-04 11:30 | PM.CNGS ---
Assessment and Plan Assessment and plan (1) Incarcerated right inguinal hernia: Code(s): K40.30 - Unilateral inguinal hernia, with obstruction, without gangrene, not specified as recurrent Status: Acute Assessment and Plan: CT scan showed a small bowel obstruction secondary to an incarcerated right inguinal hernia. The hernia was reduced in the ED and her symptoms resolved immediately after it was reduced. Right inguinal hernia is still reduced on my exam this morning. Her symptoms have resolved and she is showing some signs of bowel function. Discussed treatment options now that the hernia has been reduced, including nonoperative management with monitoring versus surgical repair. We discussed the option of proceeding with a laparoscopic right inguinal hernia repair by Dr. Fontenot under general anesthesia to prevent this from occurring in the future. Description of the procedure, risks, benefits, alternatives, and expected recovery were discussed with the patient in detail. She wishes to proceed with surgery. I will keep her NPO for now with IV fluids, and discuss with Dr. Fontenot in regards to timing of surgery. (2) Small bowel obstruction: Code(s): K56.609 - Unspecified intestinal obstruction, unspecified as to partial versus complete obstruction Status: Acute Assessment and Plan: Secondary to incarcerated right inguinal hernia. Symptoms resolved after the hernia was reduced. Will start advancing her diet once we know timing of surgery. (3) Obstructive sleep apnea: Code(s): G47.33 - Obstructive sleep apnea (adult) (pediatric) Status: Chronic Plan I have discussed the patient's case and plan of care with Dr. Fontenot. Thank you for allowing us to see the patient in consultation and we will continue to follow along with you. History of Present Illness Consult details Consult date: 08/04/24 Reason for consult: other (Right inguinal hernia, small-bowel obstruction) Requesting physician: Sudeep Mcclure MD Narrative: This is a 73-year-old woman with PMH of DEVYN, sick sinus syndrome s/p pacemaker, and hypothyroidism, who presented to the ED with complaints of right lower quadrant abdominal pain x 1 day. She had a sudden onset of pain around noon yesterday. She denies any vigorous activity or heavy lifting earlier in the morning. Her pain progressively got worse and she developed nausea and vomiting, which prompted her to come into the ED via EMS. Vital signs in the ED were stable. Labs were unremarkable. Lactic acid 1.0. CT scan of the abdomen and pelvis showed a right inguinal hernia containing terminal ileum with small bowel obstruction. Her inguinal hernia was reduced in the ED by the ED provider. She reports her pain and nausea completely resolved once the hernia was reduced. She has not had any further issues with pain, nausea, or vomiting overnight. She reports flatus this morning. Her last bowel movement was yesterday prior to onset of symptoms. KUB this morning showed normal bowel gas pattern. Denies noticing any groin bulge in the past. 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 He has since moved to a rehab facility and she has not had any recent heavy lifting. Surgical history includes a tubal ligation, bladder suspension, and vaginal rectocele repair. Review of Systems Review of Systems: All systems reviewed & are unremarkable except as noted in HPI and below PMFSH Past Medical History Medical History (Updated 08/04/24 @ 12:29 by NIVIA Morgan) Anemia Depression History of syncope Hypothyroidism, acquired Obstructive sleep apnea Osteopenia Sick sinus syndrome (~2022) Vitamin D deficiency Surgical History Surgical History H/O rectocele repair (~2004) History of bladder suspension procedure cystocele and rectocele repair 2004
--- NOTE | 2024-08-04 12:05 | WPDHPUPDATE1 ---
History and Physical Update Update Date/Time: 08/04/24 12:05 History and Physical has been reviewed, including an updated exam of the patient. There are NO changes in the patient's condition. Risks, benefits, and alternatives have been discussed and questions answered. Patient agrees to proceed with procedure.
[2024-08-04] MEDS: LACTATED RINGERS 1,000 ML 30 ML IV CONT ×2 (13:30→16:03)
--- NOTE | 2024-08-04 14:23 | WPDANESEPPF ---
Anes - Initial Pre Proc Eval Procedure: Operation Date: 08/04/24 17:00 Proposed Procedures p Laparoscopic Right Inguinal Hernia Repair with Mesh, Davinci Assisted - Diallo Fontenot DO Date/Time: 08/04/24 14:23 Surgeon: Olivia Cramer DO Pre Op Diagnosis: Inguinal Hernia/Small Bowel Ob Patient Data Age: 73 Gender: F Height: 1.55 m Weight: 56.8 kg Last Vital Signs Temp 36.6 C 08/04/24 13:20 Pulse 68 08/04/24 13:20 Resp 16 08/04/24 13:20 BP 138/53 L 08/04/24 13:20 Pulse Ox 99 08/04/24 13:20 O2 Del Method Room Air 08/04/24 08:05 Allergies Allergy/AdvReac Type Severity Reaction Status Date / Time No Known Allergies Allergy Unknown Verified 08/04/24 13:19 Home Medications Medication Instructions Recorded Confirmed Type sodium chloride 5 % eye ointment 1 applic ophthalmic (eye) DAILY 12/13/20 08/03/24 History vitamin B complex 1 tablet PO DAILY 12/13/20 08/03/24 History ascorbic acid (vitamin C) 500 mg 500 mg PO DAILY 04/11/21 08/03/24 History tablet (Vitamin C) cholecalciferol (vitamin D3) 25 25 mcg PO DAILY 08/08/21 08/03/24 History mcg (1,000 unit) capsule ybegkadzpea-lcikyfefl-ouy C-Mn 500 1 cap PO TID 08/08/21 08/03/24 History mg-400 mg capsule (Glucosamine Chondroitin Maximum Strength) magnesium 250 mg tablet 500 mg PO HS 08/08/21 08/03/24 History Synthroid 25 mcg tablet 25 mcg PO QAM 90 days #90 tabs 10/22/23 08/03/24 Rx (levothyroxine) ascorbate calcium (vitamin C) 500 500 mg PO DAILY 08/03/24 08/03/24 History mg capsule evening primrose oil 500 mg capsule 500 mg PO TID 08/03/24 08/03/24 History peg 400-propylene glycol (PF) 0.4 1 drp EACH EYE DAILY PRN Dry Eyes 08/03/24 08/03/24 History %-0.3 % eye drops in a dropperette (Systane (PF)) sodium chloride 5 % eye ointment 1 applic EACH EYE HS 08/03/24 08/03/24 History vitamin E 200 unit capsule 200 unit PO DAILY 08/03/24 08/03/24 History Laboratory Tests 08/03/24 08/03/24 18:50 20:48 WBC 9.6 K/mm3 (4.5-10.0) RBC 4.64 M/mm3 (4.2-5.4) Hgb 14.8 g/dL (12.0-15.0) Hct 42.9 % (37.0-47.0) MCV 92.5 fl (80-100) MCH 31.9 pg (26-34) MCHC 34.5 g/dl (32-36) RDW 13.2 % (11.5-14.5) Plt Count 283 k/mm3 (150-375) MPV 10.5 H fl (7.4-10.4) Immature Gran % (Auto) 0.3 % (0-0.5) Neut % (Auto) 83.0 H % (45.5-73.1) Lymph % (Auto) 10.5 L % (18.3-44.2) Bartholomew % (Auto) 5.8 % (2.6-8.5) Eos % (Auto) 0.0 % (0-4.4) Baso % (Auto) 0.4 % (0.2-1.2) Lymph # (Auto) 1.00 K/mm3 (0.9-3.2) Bartholomew # (Auto) 0.6 K/mm3 (0.1-0.6) Eos # (Auto) 0.0 K/mm3 (0-0.3) Baso # (Auto) 0.0 K/mm3 (0.0-0.1) Abs Immat Gran (auto) 0.03 K/mm3 (0.00-0.031) Absolute Neuts (auto) 7.9 H K/mm3 (1.3-6.7) Absolute Nucleated RBC 0.000 K/mm3 (0.0-0.012) Nucleated RBC % 0.0 % (0.0-0.2) PT 12.8 Seconds (11.1-14.7) INR 0.9 APTT 25.5 Seconds (22.3-36.8) Sodium 138 mmol/L (137-145) Potassium 3.7 mmol/L (3.4-5.0) Chloride 100 mmol/L (98-107) Carbon Dioxide 22 mmol/L (22-30) Anion Gap 16 H mmol/L (4-12) BUN 19 H mg/dL (7-17) Creatinine 0.70 mg/dL (0.7-1.0) Estim Creat Clear Calc Not Reportable Estimated GFR > 60 (59 - ) Glucose 133 H mg/dL (65-110) Lactic Acid 1.0 mmol/L (0.7-2.0) Calcium 9.8 mg/dL (8.4-10.2) Total Bilirubin 0.7 mg/dL (0.2-1.3) AST 32 U/L (14-36) ALT 31 U/L (6-35) Alkaline Phosphatase 87 U/L (38-126) Total Protein 8.0 g/dL (6.3-8.2) Albumin 4.8 g/dL (3.5-5.1) Lipase 66 U/L (23-300) Urine Color Yellow (Yellow) Urine Appearance Turbid H (Clear) Urine pH 8.5 (5.0-9.0) Ur Specific [place] 1.021 (1.001-1.0
[2024-08-04] MEDS: ceFAZolin 2 GM/D5W 50 ML 2 GM/50 ML BAG IVPB (14:42)
[2024-08-04] MEDS: BUPIVACAINE/EPINEPHRINE 0.5% 50 ML VIAL 30 ML INFILTRATE (15:34)
--- NOTE | 2024-08-04 15:59 | W.PM.PROC2 ---
Procedure Note - Detailed Date of Procedure 08/04/24 Pre-op Diagnosis Incarcerated right inguinal hernia Post-op Diagnosis Same (Incarcerated direct right inguinal hernia) Procedure Performed Laparoscopic incarcerated right inguinal hernia repair with mesh, da Asael assisted Surgeon Diallo Fontenot, Anesthesia General and Local (0.5% bupivacaine with epinephrine) Indications This is a 73-year-old woman who presented to the emergency department last night with right groin pain. Her pain started earlier in the day. She denies doing any heavy lifting at the time when the symptoms started. She did begin having nausea and vomiting and pain was worsening. CT in the emergency department showed evidence of a right hernia incarcerated with the terminal ileum. The hernia was able to be reduced by the ED physician. She was then admitted for further treatment. Discussions were made patient treatment options and decision was made to proceed with robotic assisted laparoscopic incarcerated right inguinal hernia repair with mesh. Findings Robotic assisted laparoscopic incarcerated right inguinal hernia repair was performed. The patient was found to have a direct right inguinal hernia. This was then a slightly cephalad and medial location than typical. The hernia was incarcerated with some preperitoneal fat and had previously been incarcerated with ileum but that was eventually able to be reduced in the emergency department. Was able to identify the area of the terminal ileum that appeared to be incarcerated. There appeared to be some hyperemia to this area and slight edema to the mesentery but no signs of ischemia or necrosis. A robotic transabdominal preperitoneal approach was utilized for repair. A large right 3DMax mid mesh was placed overlying the entire right myopectineal orifice. No specimens were obtained for pathology. Description of Procedure Procedure as well as risks, benefits, and alternatives were discussed with the patient. Written consent was obtained and placed in chart prior to procedure. Patient was brought back to surgical suite. She was placed supine on operating table. Time-out was done to confirm patient and procedure. She was then intubated by Anesthesia Department. Her abdomen was prepped and draped in sterile fashion using chlorhexidine prep. 0.5% bupivacaine with epinephrine was infiltrated at each location for incision. A 12 millimeter transverse incision was made just superior to the umbilicus using a 15 blade scalpel. Blunt dissection was carried out down to the linea alba. A vertical incision was made at the linea alba using a 15 blade scalpel. The peritoneum was then bluntly entered. A 12 millimeter trocar was inserted and carbon dioxide insufflation was used to create a pneumoperitoneum. A camera was inserted and the abdominal cavity was inspected. The patient was placed in slight Trendelenburg position. An 8 millimeter incision was made on the right lateral abdomen and an 8 millimeter trocar was inserted under direct visualization. Another 8 millimeter incision was made in the left lateral abdomen and an 8 millimeter trocar was inserted under direct visualization. The robotic arms were brought up to the patient's bedside and secured to the ports. The camera and instruments were inserted. I then moved over to the robotic console and took control of the camera and instruments. After careful inspection of the abdominal cavity, I began scoring the peritoneum along the right lower quadrant using scissors with electrocautery. The preperitoneal plane was entered and this was carefully dissected caudally along the inferior epigastric vessels. Careful dissection with scissors with electrocautery and blunt dissection was used to continue this dissection. I dissected far enough laterally to allow for mesh placement, and also dissected medially to identify the pubic arch and Robert's ligament. The hernia sac was identified and ca
[2024-08-04] MEDS: fentaNYL CITRATE INJ (*CRX) 100 MCG/2 ML VIAL 25 MCG IV PUSH ×2 (17:03→17:16)
--- NOTE | 2024-08-04 17:09 | PM.IMPN ---
Progress Note: A&P Assessment and Plan (1) Small bowel obstruction: Code(s): K56.609 - Unspecified intestinal obstruction, unspecified as to partial versus complete obstruction Status: Acute (2) Incarcerated right inguinal hernia: Code(s): K40.30 - Unilateral inguinal hernia, with obstruction, without gangrene, not specified as recurrent Status: Acute Plan Incacerate right inguinal hernia SBO ER provider reduced inguinal hernia ad pain resolved continue NPO and On IVF Awaiting surgery Gen surgery following Hypothyroidism titrate home Levothyroxine HTN Titrate home meds with clinical course SSS s/p pacemaker DVT prophylaxis on Sq lovenox Subjective Date/time seen: 08/04/24 17:09 Interval history: patient comfortable at bedside and awaiting surgery at the time of encounter Noted abd pain has resolved. Review of Systems Review of Systems: 12 systems were reviewed with pertinent positives and negatives per HPI. Except as documented in the HPI, all other systems were reviewed and are negative. Exam Narrative: General: alert and comfortable Eyes: EOMI, PERRLA ENNT External ears normal, Neck is supple, no masses, Respiratory systems: Clear to auscultation Cardiovascular S1, S2, normal rhythm, no murmur, rub, or gallop; no thrill or palpable murmurs on palpation. Gastrointestinal: soft, non-tender, and non-distended abdomen with no masses; BS present Skin: no rash, lesions, ulcerations, subcutaneous nodules or induration Musculoskeletal: no abnormality and no tenderness, normal ROM Neurologic: Alert and oriented x3, non focal Mental Status Exam: normal affect Objective Data Vital Signs Vital Signs: Vital Signs - 24 hr 08/03/24 18:14 08/03/24 19:17 08/03/24 21:04 Temperature 98.2 F Pulse Rate 78 67 78 Respiratory Rate 18 18 18 Blood Pressure 143/61 H 133/60 133/64 Pulse Oximetry 100 100 100 Oxygen Delivery Room Air Oxygen Flow Rate 08/03/24 21:35 08/04/24 05:56 08/04/24 07:25 Temperature 97.8 F 98.1 F Pulse Rate 78 59 L Respiratory Rate 17 17 Blood Pressure 135/60 130/51 L Pulse Oximetry 100 100 98 Oxygen Delivery Room Air Oxygen Flow Rate 08/04/24 08:05 08/04/24 13:20 08/04/24 16:06 Temperature 97.8 F 98.3 F Pulse Rate 68 78 Respiratory Rate 16 12 Blood Pressure 138/53 L 137/53 L Pulse Oximetry 99 100 Oxygen Delivery Room Air Simple Face Mask Oxygen Flow Rate 10 08/04/24 16:21 08/04/24 16:36 08/04/24 16:51 Temperature Pulse Rate 72 76 82 Respiratory Rate 10 L 14 13 Blood Pressure 141/52 H 147/55 H 147/55 H Pulse Oximetry 100 97 100 Oxygen Delivery Simple Face Mask Room Air Room Air Oxygen Flow Rate 10 Intake/Output Intake/Output: Intake & Output 08/01/24 08/02/24 08/03/24 08/04/24 23:59 23:59 23:59 23:59 Intake Total 1000 1050 Balance 1000 1050 Meds/Results Medications: Active Medications Generic Name Dose Route Start Last Admin Trade Name Freq PRN Reason Stop Dose Admin Fentanyl Citrate 25 mcg 08/04/24 14:37 08/04/24 17:03 Fentanyl Citrate Inj (*Crx) 100 Mcg/2 Ml Vial IV PUSH 25 mcg Q2M PRN Administration Pain Hydromorphone HCl 0.5 mg 08/03/24 23:38 Hydromorphone Hcl Inj (*Crx) 1 Mg/Ml Syr IV PUSH Q3H PRN Pain Rated 7-10 Sodium Chloride 1,000 mls @ 125 mls/hr 08/03/24 20:45 08/04/24 06:06 Normal Saline Iv IV CONT 125 mls/hr .Q8H DANNI Administration Lactated Ringer's 1,000 mls @ 30 mls/hr 08/04/24 14:40 08/04/24 16:02 Lr - Lactated Ringers Iv IV CONT Infused .Q24H DANNI Infusion Lactated Ringer's 1,000 mls @ 30 mls/hr 08/04/24 14:40 08/04/24 16:03 Lr - Lactated Ringers Iv IV CONT 30 mls/hr .Q24H DANNI Administration Ondansetron HCl 4 mg 08/03/24 20:45 Ondansetron Inj 4 Mg/2 Ml Vial IV PUSH Q4H PRN Nausea Ondansetron HCl 4 mg 08/04/24 14:37 Ondansetron Inj 4 Mg/2 Ml V
--- NOTE | 2024-08-04 17:52 | PC.NURSE ---
Patient returned from OR per stretcher [id number].
[2024-08-04] MEDS: LACTATED RINGERS 1,000 ML 100 ML IV CONT (18:24)
[2024-08-04] MEDS: ONDANSETRON INJ 4 MG/2 ML VIAL IV PUSH (19:21)
[2024-08-04] MEDS: IBUPROFEN IV 800 MG/200 ML 800 MG/200 ML BAG 400 MG IVPB (21:18)
[2024-08-05 03:34] VITALS: BP 115/52; PULSE 70; RESP 17; TEMP 36.6; O2SAT 99
[2024-08-05] MEDS: IBUPROFEN IV 800 MG/200 ML 800 MG/200 ML BAG 400 MG IVPB (05:52)
[2024-08-05] MEDS: ENOXAPARIN 40 MG/0.4 ML SYRINGE SUB-Q (08:44)
--- NOTE | 2024-08-05 09:09 | WPDANESPN ---
Anes - Prog Note Post-Op Date/Time: 08/05/24 09:09 Cardiovascular status: normal Respiratory status: normal Airway patency: baseline Mental status: baseline Post-Op hydration status: normal Vital Signs: Last Vital Signs Temp 97.9 F 08/05/24 03:34 Pulse 70 08/05/24 03:34 Resp 17 08/05/24 03:34 BP 115/52 L 08/05/24 03:34 Pulse Ox 99 08/05/24 03:34 O2 Del Method Room Air 08/05/24 08:44 O2 Flow Rate 10 08/04/24 16:21 Pain Score (VAS): 0/10 I/O: Intake & Output 08/04/24 08/05/24 08/05/24 23:59 07:59 15:59 Intake Total 860 1200 Output Total 100 Balance 860 1100 Laboratory Tests 08/03/24 18:50 08/03/24 18:50 Post-procedural complaints: none Patient Feedback: Patient satisfied with anesthetic care.
[2024-08-05 10:27] VITALS: BP 143/49; PULSE 81; RESP 18; TEMP 37.1; O2SAT 98
--- NOTE | 2024-08-05 11:36 | PM.PNGS ---
Progress Note: A&P Assessment and Plan (1) Incarcerated right inguinal hernia: Code(s): K40.30 - Unilateral inguinal hernia, with obstruction, without gangrene, not specified as recurrent Status: Acute Assessment and Plan: POD1 laparoscopic right inguinal hernia repair with mesh. Advance diet as tolerated. Increase activity, walk in the halls. If patient is tolerating a regular diet later today, then it is okay from a surgical standpoint to discharge home this afternoon. Follow-up in [address] Fontenot. All discharge instructions discussed with the patient and family. (2) Small bowel obstruction: Code(s): K56.609 - Unspecified intestinal obstruction, unspecified as to partial versus complete obstruction Status: Acute Assessment and Plan: Secondary to incarcerated right inguinal hernia, s/p repair. Advance to regular diet. Plan I have discussed the patient's case and plan of care with Dr. Fontenot. Subjective Subjective Date/Time Seen: 08/05/24 11:36 Post Op day: 1 (Robotic assisted laparoscopic right inguinal hernia repair with mesh ) Patient reports: nausea (mild nausea after breakfast this morning) Interval history: Patient is up to chair this morning. She reports bilateral shoulder pain that improved after getting up this morning. She reports mild incisional soreness. She tolerated clear liquids for breakfast well. Mild nausea that has resolved. No vomiting or issues overnight. Voiding without difficulty. Review of Systems Review of Systems: All systems reviewed & are unremarkable except as noted in HPI and below Exam Const: General: comfortable and no acute distress Orientation/consciousness: patient oriented x3 Resp: Effort & Inspection: normal respiratory effort Auscultation: clear to auscultation bilaterally GI: Inspection: non-distended and incision (incisions dry and intact) GI Palp: Yes Soft to palpation, No Tenderness to palpation present (GI) and No Guarding due to palpation present (GI) Auscultation: normal bowel sounds Neuro: General: moves all extremities and no focal motor deficits Psych: Mental Status: mental status grossly normal Insight: Good insight present (Psych) Objective Data Vital Signs Vital Signs: Vital Signs - 24 hr 08/04/24 13:20 08/04/24 16:06 08/04/24 16:21 Temperature 97.8 F 98.3 F Pulse Rate 68 78 72 Respiratory Rate 16 12 10 L Blood Pressure 138/53 L 137/53 L 141/52 H Pulse Oximetry 99 100 100 Oxygen Delivery Simple Face Mask Simple Face Mask Oxygen Flow Rate 10 10 08/04/24 16:36 08/04/24 16:51 08/04/24 17:06 Temperature Pulse Rate 76 82 75 Respiratory Rate 14 13 10 L Blood Pressure 147/55 H 147/55 H 141/55 H Pulse Oximetry 97 100 100 Oxygen Delivery Room Air Room Air Room Air Oxygen Flow Rate 08/04/24 17:21 08/04/24 17:59 08/04/24 18:14 Temperature 98.4 F 99.0 F Pulse Rate 85 91 81 Respiratory Rate 13 16 12 Blood Pressure 140/55 L 141/66 H 141/66 H Pulse Oximetry 98 81 L 98 Oxygen Delivery Room Air Oxygen Flow Rate 08/04/24 18:44 08/04/24 19:44 08/04/24 19:56 Temperature 99.0 F 98.3 F Pulse Rate 76 73 Respiratory Rate 12 17 Blood Pressure 148/62 H 133/50 L Pulse Oximetry 97 98 Oxygen Delivery Room Air Oxygen Flow Rate 08/04/24 21:40 08/04/24 23:36 08/05/24 03:34 Temperature 98.0 F 97.9 F Pulse Rate 73 71 70 Respiratory Rate 25 H 17 17 Blood Pressure 114/45 L 115/52 L Pulse Oximetry 98 98 99 Oxygen Delivery Autopap Oxygen Flow Rate 08/05/24 08:44 08/05/24 10:27 Temperature 98.7 F Pulse Rate 81 Respiratory Rate 18 Blood Pressure 143/49 H Pulse Oximetry 98 Oxygen Delivery Room Air Oxygen Flow Rate Intake/Output Intake/Output: Intake & Output 08/02/24 08/03/24 08/04/24 08/05/24 23:59 23:59 23:59 23:59 Intake Total 1000 1910 1440 Output Total 100 Balance 1000 1910 1340 Meds/Results Medications: Active Medications
[2024-08-05] MEDS: HYDROcodone/acetaminophen (*CRX) 5-325 MG TABLET 1 TAB PO (11:43)
--- NOTE | 2024-08-05 14:06 | PM.DS ---
DS: Admitting Diagnosis Discharge Date 08/05/24 Admitting Diagnosis incarcerated hernia DS: Discharge Diagnosis Discharge Diagnosis (1) Incarcerated right inguinal hernia: Code(s): K40.30 - Unilateral inguinal hernia, with obstruction, without gangrene, not specified as recurrent Status: Acute (2) Small bowel obstruction: Code(s): K56.609 - Unspecified intestinal obstruction, unspecified as to partial versus complete obstruction Status: Acute DS: Summary Hospital Course Hospital Course: 73-year-old female with a past medical history vitamin-D deficiency, osteopenia, hypothyroidism, essential hypertension, sick sinus syndrome status post pacemaker, bladder sling procedure, rectocele repair, tubal ligation who presented to the ER via EMS from home with sudden acute onset of right lower quadrant abdominal pain. The patient reports no eliciting factors. She reported around noon she developed 7/10 in intensity sharp stabbing pain in her right lower quadrant. It was accompanied by chills and shivering. She was afebrile on presentation to the ER. She did have 1 episode of vomiting just prior to EMS arrival at her home. She reports her last bowel movement was that same morning and was soft normally formed and brown in appearance. She had a normal colonoscopy in 2020 was stool she does not need any further colonoscopies due to her age. She thought she may have acute appendicitis so came into the ER for evaluation. In the ER CT scan was performed which demonstrated small-bowel obstruction due to incarcerated hernia containing terminal ileum. ER provider was able to reduce her hernia with almost immediate relief and abdominal pain.. Patient subsequently admitted to the medical floor with General surgery consult. Gen surgery evaluated adn recommended herniorrhaphy which patient consented to. She underwent the procedure yesterday and has thourghly tolerated food today. Surgery consented todischarge today and patient waas discharged to follow up with surgery as instructed and PCP in 3-5 days . Assessment and Plan (1) Small bowel obstruction: Code(s): K56.609 - Unspecified intestinal obstruction, unspecified as to partial versus complete obstruction Status: Acute (2) Incarcerated right inguinal hernia: Code(s): K40.30 - Unilateral inguinal hernia, with obstruction, without gangrene, not specified as recurrent Status: Acute Plan Incacerate right inguinal hernia SBO s/p herniorrhaphy tolerating diet discharged on PO pRN pain control per surgery appreciate input from Surgery F/u with surgery as instructed Hypothyroidism titrate home Levothyroxine HTN Titrate home meds with clinical course SSS s/p pacemaker F/u with PCP in 3-5 days, f/u with gne surgery as instructed Time Spent with Patient Time attestation: Total time spent providing and/or coordinating discharge services: Discharge Plan Discharge Attending physician on discharge: Omi Brush Consulting providers: Diallo Baltazar; Gustavo Machado Discharging Clinician: Omi Brush Anticipated Discharge Date/Time: 08/05/24 14:04 Patient Disposition: Home, Self-Care Activity: may shower, no driving and other - see discharge instructions Diet: regular Wound Care Instructions: incision open to air Discharge Instructions: DISCHARGE INSTRUCTION SHEET FOR HERNIA, GALLBLADDER AND APPENDIX SURGERIES DR. BALTAZAR 1. May shower in 24 hours, no soaking in bath x 2weeks. 2. Call office for: Wound increasingly painful or bleeding Vomiting Fever of greater than 101 degrees 3. If no bowel movement for three days, take 1 oz. (30 ml) Milk of Magnesia or MiraLax 17g 1 to 2 times daily. 4. No heavy lifting > 10-15 pounds x at least 2 weeks and until your surgeon gives you further instructions in follow-up 5. No driving for 3 days or while taking narcotic pain medications. 6.
== END 2024-08-05 14:32 | disposition home or self-care (01) | DRG 352 ==
LOC: ANHED 20:44 → ANH3MED 21:06
PROVIDERS: Surgery; Admitting Provider Internal Medicine; Emergency Provider Emergency Medicine; PCP Family Medicine; Visit Provider Internal Medicine
PROC: 8E0Y4CZ Robotic Assisted Procedure of Lower Extremity, Percutaneous Endoscopic Approach (ICD-10-PCS; CPT 49650; principal; 2024-08-04 17:00)
DX: K40.30 Unilateral inguinal hernia, with obstruction, without gangrene, not specified as recurrent (principal); D64.9 Anemia, unspecified; E03.9 Hypothyroidism, unspecified; E55.9 Vitamin D deficiency, unspecified; G47.33 Obstructive sleep apnea (adult) (pediatric); I10 Essential (primary) hypertension; I49.5 Sick sinus syndrome; M85.80 Other specified disorders of bone density and structure, unspecified site; Z95.0 Presence of cardiac pacemaker; Z98.41 Cataract extraction status, right eye; Z98.42 Cataract extraction status, left eye; Z96.1 Presence of intraocular lens
CPT/HCPCS: 36415; 74018; 74177; 80053; 81001; 83605; 83690; 85025; 85610; 85730; 96361; 96374; 96375; 99285; A9270; C1781; G0378; J0330; J0690; J1100; J1170; J1650; J1741; J2405; J2704; J2765; J3010; J7030; J7120; Q9967

== ENCOUNTER → 2024-12-13 15:34 | Outpatient (REF) | payer MEDICARE, SELFPAY | LOC: ANHLAB 15:34 | PROVIDERS: PCP Family Medicine; Visit Provider Physician Assistant Surgical | DX: D23.9 Other benign neoplasm of skin, unspecified (principal) | CPT/HCPCS: 88305 ==